=== PATIENT | male | born 1990 | race Caucasian/White ===

== ENCOUNTER 2021-01-26 17:22 | Emergency (ER) | payer BC, SELFPAY ==
[2021-01-26 17:24] VITALS: BP 121/94; PULSE 54; RESP 18; TEMP 36.2; O2SAT 98
[2021-01-26] MEDS: HYDROcodone/acetaminophen (*CRX) 5-325 MG TABLET 1 TAB PO (18:36)
--- NOTE | 2021-01-26 20:25 | ED.WOUNDLAC ---
HPI - Wound/Laceration General Chief Complaint: Wound/Laceration Stated Complaint: finger lac Time Seen by Provider: 01/26/21 17:45 Source: patient Mode of arrival: ambulatory Limitations: no limitations History of Present Illness HPI narrative: Patient presents with CC of 2cm flap laceration to the left index finger that he sustained using a cutting knife accidently. Patient reports he is UTD on tetanus. He denies smash or crush injury. He denies any other injuries. Related Data Home Medications Medication Instructions Recorded Confirmed escitalopram oxalate [Lexapro] 5 mg PO DAILY 01/26/21 01/26/21 Allergies Allergy/AdvReac Type Severity Reaction Status Date / Time Penicillins AdvReac Rash Verified 01/26/21 17:27 Review of Systems Review of Systems: CONSTITUTIONAL: Denies fever, chills, or sweats. EYES: Denies visual changes, redness, or discharge. ENT: Denies rhinorrhea, congestion, sore throat, or otalgia. CARDIOVASCULAR: Denies chest pain, palpitations, or edema. RESPIRATORY: Denies cough or dyspnea. GASTROINTESTINAL: Denies abdominal pain, nausea, vomiting, or diarrhea. GENITOURINARY: Denies dysuria or hematuria. SKIN: Reports laceration Denies rash or itching. MUSCULOSKELETAL: Denies back pain, joint pain, or myalgia. NEUROLOGIC: Denies headache, numbness, dizziness, or weakness. PSYCHIATRIC: Denies anxiety or depression. Exam Narrative: GENERAL: Well-appearing, well-nourished, and in no acute distress. HEAD: Normocephalic, atraumatic. EYES: PERRLA and EOMI. CHEST: Clear to auscultation. No respiratory distress. No wheezes rales or rhonchi HEART: Regular rate and rhythm. No murmur heard. Normal peripheral pulses. EXTREMITIES: Normal range of motion. No edema. SKIN: 2cm laceration through corner of left index finger nail around to kaufman area, flap. No alma tenderness or crush injury. there is still some sensation and cap refill. Warm, dry, no rash. NEURO: No focal deficits. Alert and oriented x3. PSYCH: Normal mood and affect. Course Vital Signs Vital signs: Vital Signs Temperature 97.2 F L 01/26/21 17:24 Pulse Rate 54 L 01/26/21 17:24 Respiratory Rate 18 01/26/21 17:24 Blood Pressure 121/94 H 01/26/21 17:24 Pulse Oximetry 98 01/26/21 17:24 Temperature 97.2 F L 01/26/21 17:24 Pulse Rate 54 L 01/26/21 17:24 Respiratory Rate 18 01/26/21 17:24 Blood Pressure 121/94 H 01/26/21 17:24 Pulse Oximetry 98 01/26/21 17:24 Procedures Laceration Laceration 1: Site: hand Side (If applicable): left Size (cm): 2 Description: flap Depth: simple, single layer (involves corner of nail) Local Anesthetic: lidocaine 1% Amount of anesthesia used (mL): 1 Pre-repair: irrigated extensively ====== Skin Level ====== Skin layer closed with: nylon Size (cm): 5-0 Number of sutures: 6 Technique: simple, interrupted ====== Subcutaneous Layer ====== ====== Muscle Layer ====== ====== Tendon Layer ====== Dressing: non stick telfa, neosporin and dressing applied. wound bleeding stopped. MDM - Wound/Laceration MDM Narrative Medical decision making narrative: Laceration was brought together well. Bleeding stopped. Dressing applied. wound care instructions given. Due to involving so much of the tip and the nailbed patient placed on bactrim (pcn allergy- not sure about keflex). Discussed signs of infection and need for followup. Differential Diagnosis Differential diagnosis: Likely laceration, abscess, abrasion and avulsion of skin Discharge Plan Discharge Clinical Impression: Laceration Patient Disposition: Home, Self-Care Condition: Improved Instructions: Antibiotic Form, Care For Your Stitches (ED), Laceration (ED) Additional Instructions: Keep areas clean. Wash with antibacterial soap and apply antibacterial ointment. Follow-up with primary care if any signs of infection p
[2021-01-26 20:31] VITALS: BP 114/80; PULSE 100; RESP 18; TEMP 36.7; O2SAT 98
== END 2021-01-26 20:52 | disposition home or self-care (01) ==
PROVIDERS: Emergency Provider Emergency Medicine; PCP Family Medicine
DX: S61.211A Laceration without foreign body of left index finger without damage to nail, initial encounter (principal); W26.0XXA Contact with knife, initial encounter
CPT/HCPCS: 12001; 99283; A9270